=== PATIENT | female | born 1935 | race Caucasian/White ===

== ENCOUNTER → 2018-04-14 | Outpatient (CLI) | payer OTHER ==
[~2018-04-14] MED LIST: AMLO10TA6 PO; ASPI1CPM8 PO; CALC-1116 PO; CARV25TA PO; CHOL200012 PO; DOCU100C33 PO; ESOM40CA PO; FENO45CA2 PO; FERR325C PO; FISH1CAP50 PO; FOLI0.8T22 PO; FURO40TA5 PO; INSLAN SQ; INSU100I3 SQ; INSU3INS3 SQ; IOHEXOL-350 75 ML VIAL IV ONE; ISOS60TA4 PO; LEVO175T4 PO; MOME17N EN; NITR0.4T50 SL; OXYB15TA PO; ROSU10TA PO; UBID100C10 PO; XALA2.5OS OU
== END | disposition home or self-care (01) ==
LOC: RAH 10:00
PROVIDERS: ATTEND Internal Medicine Nephrology
DX: K76.0 Fatty (change of) liver, not elsewhere classified (principal); J90 Pleural effusion, not elsewhere classified; N28.1 Cyst of kidney, acquired; N32.89 Other specified disorders of bladder
CPT/HCPCS: 74177; Q9967